=== PATIENT | male | born 1990 | race Caucasian/White ===

== ENCOUNTER 2016-12-09 08:19 | Emergency (ER) | payer SELFPAY ==
[~2016-12-09 08:19] MED LIST: CIPR500T2 PO; DICL50 PO
[2016-12-09 08:21] VITALS: BP 135/79; PULSE 54; RESP 20; TEMP 97.2; O2SAT 99
[2016-12-09] MEDS ORDERED: SODIUM CHLOR 0.9% 1000 ML INJ 1,000 ML IV ONE (09:15)
--- NOTE | 2016-12-09 09:20 | PD ---
HPI Chief Complaint: General Weakness Time Seen by Provider: 09:06 Travel History International Travel<30 days: No Contact w/Intl Traveler<30days: No Traveled to known affect area: No History of Present Illness HPI Patient is a 26-year-old male who comes in complaining of weakness, and feeling unwell. He says his blood over the past 3 days. He says he has some pains in his arms and his back as well as sometimes in his abdomen. He says he has not been eating much lately. He denies vomiting, but has had some nausea. He says he feels short of breath when he walks. He denies any chest pain. He says he has an occasional cough. He denies any drug use other than marijuana. He denies fever or chills. 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 [facility] Social History Alcohol Use: Yes Tobacco Use: Yes Substance Use: No Allergies-Medications (Allergen,Severity, Reaction): Coded Allergies: No Known Allergies (Unverified , 03/22/15) Reported Meds & Prescriptions Reported Meds & Active Scripts Active Ciprofloxacin Hcl 500 Mg Tab 500 Mg PO BID Voltaren (Diclofenac Sodium) 50 Mg Tabec 50 Mg PO TID Review of Systems Except as stated in HPI: all other systems reviewed are Neg General / Constitutional: Positive: Weight Loss, No: Fever, Chills Eyes: No: Blurred Vision HENT: No: Headaches, Lightheadedness Cardiovascular: No: Chest Pain or Discomfort Respiratory: Positive: Shortness of Breath Gastrointestinal: Positive: Nausea, Diarrhea, Abdominal Pain, No: Vomiting Musculoskeletal: Positive: Myalgias Skin: No Rash, No Change in Pigmentation Neurologic: Positive: Weakness, No: Dizziness Physical Exam Narrative GENERAL: Awake and alert, in no acute distress. SKIN: Focused skin assessment warm/dry. HEAD: Atraumatic. Normocephalic. EYES: Pupils equal and round. No scleral icterus. ENT: Mucous membranes pink and moist. NECK: Trachea midline. No JVD. CARDIOVASCULAR: Regular rate and rhythm. No murmur appreciated. RESPIRATORY: No accessory muscle use. Clear to auscultation. Breath sounds equal bilaterally. GASTROINTESTINAL: Abdomen soft, nondistended. Mild tenderness to right upper quadrant and suprapubic area. No rebound or guarding. MUSCULOSKELETAL: No obvious deformities. No clubbing. No cyanosis. No edema. NEUROLOGICAL: Awake and alert. No obvious cranial nerve deficits. Motor grossly within normal limits. Normal speech. PSYCHIATRIC: Appropriate mood and affect; insight and judgment normal. Data Data Last Documented VS Vital Signs Date Time Temp Pulse Resp B/P Pulse Ox O2 Delivery O2 Flow Rate FiO2 12/09/16 11:39 75 16 122/63 100 12/09/16 09:07 Room Air 12/09/16 08:21 97.2 Orders Complete Blood Count With Diff (12/09/16 08:29) Basic Metabolic Panel (Bmp) (12/09/16 08:29) Creatine Kinase (Cpk) (12/09/16 08:29) Urinalysis - C+S If Indicated (12/09/16 08:29) Electrocardiogram (12/09/16 ) Troponin I (12/09/16 09:13) Chest, Pa & Lat (12/09/16 ) Sodium Chlor 0.9% 1000 Ml Inj (Ns 1000 M (12/09/16 09:15) Ketorolac Inj (Toradol Inj) (12/09/16 11:00) Labs Laboratory Tests Test 12/09/16 12/09/16 08:45 10:10 Urine Color YELLOW Urine Turbidity CLEAR Urine pH 7.5 Urine Specific [place] 1.020 Urine Protein NEG mg/dL Urine Glucose (UA) NEG mg/dL Urine Ketones NEG mg/dL Urine Occult Blood NEG Urine Nitrite NEG Urine Bilirubin NEG Urine Urobilinogen LESS THAN 2.0 MG/DL Urine Leukocyte Esterase NEG Urine RBC LESS THAN 1 /hpf Microscopic Urinalysis Comment CULT NOT INDICATED White Blood Count 8.2 TH/MM3 Red Blood Count 5.18 MIL/MM3 Hemoglobin 12.3 GM/DL Hematocrit 38.8 % Mean Corpuscular Volume 74.9 FL Mean Corpuscular Hemoglobin 23.8 PG Mean Corpuscular Hemoglobin 31.8 % Concent Red Cell Distribution Width 16.6 % Platelet Count 211 TH/MM3 Mean Platelet Volume 8.6 FL Neutrophils (%) (Auto) 77.9 % Lymphocytes (%) (Auto) 14.3 % Monocytes (%) (Auto) 6.6 % Eosinophils (%) (Auto) 0.7 % Basophils (%) (Auto) 0.5 % Neutrophils # (Auto) 6.4 TH/MM3 Lymphocytes # (Auto) 1.2 TH/MM3 Monocytes # (Auto) 0.5 TH/MM3 Eosinophils # (Auto) 0.1 TH/MM3 Basophils # (Auto) 0.0 TH/MM3 CBC Comment DIFF FINAL Differential Comment Sodium Level 140 MEQ/L Potassium Level 4.0 MEQ/L Chloride Level 106 MEQ/L Carbon Dioxide Level 25.9 MEQ/L Anion Gap 8 MEQ/L Blood Urea Nitrogen 10 MG/DL Creatinine 0.95 MG/DL Estimat Glomerular Filtration 94 ML/MIN Rate Random Glucose 77 MG/DL Calcium Level 8.7 MG/DL Total Creatine Kinase 120 U/L Troponin I LESS THAN 0.02 NG/ML MDM Medical Decision Making Medical Screen Exam Complete: Yes Emergency Medical Condition: Yes Medical Record Reviewed: Yes Interpretation(s) ECG shows sinus bradycardia, no ST elevation or depression, normal intervals. Differential Diagnosis Viral syndrome versus dehydration versus pneumonia versus electrolyte abnormality Narrative Course Patient is a 26 year old male who comes in complaining of feeling unwell. Exam shows minimal abdominal pain, no rebound or guarding. IV established, labs sent. Labs show no acute abnormalities. Patient given IVF and Toradol. He is reassured by normal labs and CXR. Says he is ready to go home. He is advised to increase his fluid intake. Advised to follow up with a primary care doctor. Advised to return to the ED as needed for any worsening symptoms. Diagnosis Primary Impression: Generalized weakness Referrals: [facility] call for appointment Patient Instructions: General Instructions, Viral Syndrome (ED), Weakness (ED) Additional Instructions: Follow up with a primary care doctor. Increase your fluid intake. Return to the ED as needed for any worsening symptoms. Disposition: 01 DISCHARGE HOME Condition: Stable Keyonna Delatorre MD Dec 09, 2016 09:20
[2016-12-09 09:28] LABS: BLOOD, URINE NEG (NEG); COMMENT (UR) CULT NOT INDICATED; CULTURE IF INDICATED CULT NOT INDICATED; GLUCOSE,URINE NEG (NEG); KETONE, URINE NEG (NEG); NITRITE,URINE NEG (NEG); PH, URINE 7.5 (5.0-8.5); URINE COLOR YELLOW (YELLW/STRAW)
--- NOTE | 2016-12-09 10:24 | RADRPT ---
EXAM DATE/TIME: 12/09/2016 09:49 [facility] COMPARISON: No previous studies available for comparison. INDICATIONS : Short of breath, weakness. MEDICAL HISTORY : heart murmur SURGICAL HISTORY : None. ENCOUNTER: Initial ACUITY: 4 - 6 days PAIN SCORE: 4/10 LOCATION: Right chest upper FINDINGS: PA and lateral views of the chest demonstrate the lungs to be symmetrically aerated without evidence of mass, infiltrate or effusion. The cardiomediastinal contours are unremarkable. Osseous structure s are intact. CONCLUSION: 1. No acute cardiopulmonary findings. Andrea Ivory MD on December 09, 2016 at 10:14 Board Certified Radiologist. This report was verified electronically.
[2016-12-09 10:26] LABS: AUTOMATED NEUTROPHIL # 6.4 TH/MM3 (1.8-7.7); BASOPHIL % 0.5 % (0.0-2.0); EOSINOPHIL # 0.1 TH/MM3 (0-0.4); EOSINOPHIL % 0.7 % (0.0-4.0); HEMATOCRIT 38.8 % (39.0-51.0); HEMO FLAGS DIFF FINAL; LYMPH % 14.3 % (9.0-44.0); LYMPHOCYTE # 1.2 TH/MM3 (1.0-4.8); MEAN CELL VOLUME 74.9 FL (80.0-100.0); MEAN CORPUSCULAR HEMOGLOBIN 23.8 PG (27.0-34.0); MEAN CORPUSCULAR HGB CONC 31.8 % (32.0-36.0); MONO % 6.6 % (0.0-8.0); NEUT % 77.9 % (16.0-70.0); PLATELET COUNT 211 TH/MM3 (150-450); RED BLOOD COUNT 5.18 MIL/MM3 (4.50-5.90); RED CELL DISTRIBUTION WIDTH 16.6 % (11.6-17.2); WHITE BLOOD COUNT 8.2 TH/MM3 (4.0-11.0)
[2016-12-09 10:46] LABS: BICARBONATE 25.9 MEQ/L (21.0-32.0)
[2016-12-09] MEDS ORDERED: KETOROLAC TROMETHAMINE 30 MG/ML (IVP) VIAL IV PUSH ONE (11:00)
[2016-12-09 11:39] VITALS: BP 122/63
--- NOTE | 2016-12-09 16:47 | EKG ---
Date Performed: 12/09/2016 Time Performed: 09:22:24 PTAGE: 26 years EKG: SINUS BRADYCARDIA EARLY REPOLARIZATION BORDERLINE ECG NO PREVIOUS TRACING DOCTOR: Abe Seals Interpretating Date/Time 12/09/2016 16:45:38
== END 2016-12-09 11:41 | disposition home or self-care (01) ==
LOC: NEPD 08:19
DX: R53.1 Weakness (principal); R06.02 Shortness of breath; R05 Cough; R00.1 Bradycardia, unspecified; Z72.0 Tobacco use
CPT/HCPCS: 71020; 80048; 81001; 82550; 84484; 85025; 93005; 99285; J7030

== ENCOUNTER 2016-12-18 22:46 | Emergency (ER) | payer SELFPAY ==
[~2016-12-18] VITALS: Ht 172.7 cm; Wt 55.0 kg
[2016-12-18 22:48] VITALS: BP 116/59; PULSE 80; RESP 18; TEMP 98.8; O2SAT 100
--- NOTE | 2016-12-18 23:58 | PD ---
HPI Chief Complaint: Injury Time Seen by Provider: 23:45 Travel History International Travel<30 days: No Contact w/Intl Traveler<30days: No Traveled to known affect area: No History of Present Illness HPI Patient is a 26-year-old male who presents to emergency room complaints of right knee pain. Patient reports that he woke up 3 days ago and noticed increased redness and swelling to his right knee. Reports that there is a little white dot on his knee, he is unsure if he was bitten by a bug. Patient denies any fevers, reports chills. Patient's tetanus is up-to-date. Patient denies any trauma to his knee. No other complaints. PFSH Past Medical History Medical History: Denies Significant Hx Social History Alcohol Use: Yes (ONCE EVERY TWO WEEKS) Tobacco Use: Yes (1/2 PPD) Substance Use: Yes (MARIJUANA) Allergies-Medications (Allergen,Severity, Reaction): Coded Allergies: No Known Allergies (Unverified , 12/18/16) Reported Meds & Prescriptions Reported Meds & Active Scripts Active Ibuprofen 600 Mg Tab 600 Mg PO Q6H PRN Percocet (Oxycodone-Acetaminophen) 5-325 mg Tab 1 Tab PO Q6H PRN Bactrim DS (Sulfamethoxazole-Trimethoprim) 800-160 Mg Tab 1 Tab PO BID 10 Days Keflex (Cephalexin) 500 Mg Cap 500 Mg PO Q6H 10 Days Review of Systems General / Constitutional: No: Fever Eyes: No: Visual changes HENT: No: Headaches Cardiovascular: No: Chest Pain or Discomfort Respiratory: No: Shortness of Breath Gastrointestinal: No: Abdominal Pain Genitourinary: No: Dysuria Musculoskeletal: Positive: Pain (right knee pain) Skin: No Rash Neurologic: No: Weakness Psychiatric: No: Depression Endocrine: No: Polydipsia Hematologic/Lymphatic: No: Easy Bruising Physical Exam Narrative GENERAL:NAD, Nontoxic SKIN: Focused skin assessment warm/dry. HEAD: Atraumatic. Normocephalic. EYES: Pupils equal and round. No scleral icterus. No injection or drainage. ENT: No nasal bleeding or discharge. Mucous membranes pink and moist. NECK: Trachea midline. No JVD. CARDIOVASCULAR: Regular rate and rhythm. No murmur appreciated. RESPIRATORY: No accessory muscle use. Clear to auscultation. Breath sounds equal bilaterally. GASTROINTESTINAL: Abdomen soft, non-tender, nondistended. Hepatic and splenic margins not palpable. MUSCULOSKELETAL: No obvious deformities. No clubbing. No cyanosis. Swelling and erythema to knee NEUROLOGICAL: Awake and alert. No obvious cranial nerve deficits. Motor grossly within normal limits. Normal speech. PSYCHIATRIC: Appropriate mood and affect; insight and judgment normal. Data Data Last Documented VS Vital Signs Date Time Temp Pulse Resp B/P Pulse Ox O2 Delivery O2 Flow Rate FiO2 12/19/16 00:44 16 12/19/16 00:11 73 100 12/18/16 22:48 98.8 116/59 Orders Basic Metabolic Panel (Bmp) (12/18/16 23:48) Complete Blood Count With Diff (12/18/16 23:48) Iv Access Insert/Monitor (12/18/16 23:48) Ecg Monitoring (12/18/16 23:48) Morphine Inj (Morphine Inj) (12/19/16 00:00) Vancomycin Inj (Vancomycin Inj) (12/19/16 00:00) Knee, Complete (4vws) (12/18/16 ) Synovial Fluid Crystals (12/18/16 23:48) Synovial Fluid Glucose (12/18/16 23:48) Synovial Fluid Total Protein (12/18/16 23:48) Fluid Culture And Gram Stain (12/18/16 23:53) Lidocaine 1% Inj (Xylocaine 1% Inj) (12/19/16 00:00) Diphenhydramine Inj (Benadryl Inj) (12/19/16 01:00) Synovial Fl Cell Count + Diff (12/19/16 03:45) Synovial Fluid Total Protein (12/19/16 03:47) Labs Laboratory Tests Test 12/18/16 12/19/16 12/19/16 23:50 00:45 04:02 White Blood Count 14.6 TH/MM3 Red Blood Count 4.88 MIL/MM3 Hemoglobin 11.5 GM/DL Hematocrit 36.7 % Mean Corpuscular Volume 75.1 FL Mean Corpuscular Hemoglobin 23.6 PG Mean Corpuscular Hemoglobin 31.4 % Concent Red Cell Distribution Width 16.4 % Platelet Count 245 TH/MM3 Mean Platelet Volume 8.5 FL Neutrophils (%) (Auto) 82.6 % Lymphocytes (%) (Auto) 9.3 % Monocytes (%) (Auto) 6.8 % Eosinophils (%) (Auto) 0.9 % Basophils (%) (Auto) 0.4 % Neutrophils # (Auto) 12.0 TH/MM3 Lymphocytes # (Auto) 1.4 TH/MM3 Monocytes # (Auto) 1.0 TH/MM3 Eosinophils # (Auto) 0.1 TH/MM3 Basophils # (Auto) 0.1 TH/MM3 CBC Comment DIFF FINAL Differential Comment Sodium Level 138 MEQ/L Potassium Level 3.9 MEQ/L Chloride Level 100 MEQ/L Carbon Dioxide Level 27.3 MEQ/L Anion Gap 11 MEQ/L Blood Urea Nitrogen 16 MG/DL Creatinine 1.04 MG/DL Estimat Glomerular Filtration 85 ML/MIN Rate Random Glucose 81 MG/DL Calcium Level 8.9 MG/DL Synovial Fluid Crystals NONE Synovial Fluid Color STRAW Synovial Fluid Appearance CLEAR Synovial Fluid WBC 24 /MM3 Synovial Fluid RBC 9 /MM3 Synovial Fluid Neutrophils 97 % Synovial Fluid Lymphocytes 3 % MDM Medical Decision Making Medical Screen Exam Complete: Yes Emergency Medical Condition: Yes Interpretation(s) Vital Signs Date Time Temp Pulse Resp B/P Pulse Ox O2 Delivery O2 Flow Rate FiO2 12/18/16 22:48 98.8 80 18 116/59 100 Differential Diagnosis Differential includes septic joint, cellulitis, gout Narrative Course 26-year-old male who presents to emergency room with complaints of right knee swelling and pain for the past 3 days. Reports chills with his symptoms. There seems to be an area that may be an abscess vs bug bite. Plan to treat with vancomycin as there is redness to his right knee. Will obtain fluid aspirate and evaluate for septic joint Vital Signs Date Time Temp Pulse Resp B/P Pulse Ox O2 Delivery O2 Flow Rate FiO2 12/19/16 00:44 16 12/19/16 00:11 73 20 100 12/18/16 22:48 98.8 80 18 116/59 100 Laboratory Tests Test 12/18/16 12/19/16 12/19/16 23:50 00:45 04:02 White Blood Count 14.6 TH/MM3 (4.0-11.0) Red Blood Count 4.88 MIL/MM3 (4.50-5.90) Hemoglobin 11.5 GM/DL (13.0-17.0) Hematocrit 36.7 % (39.0-51.0) Mean Corpuscular Volume 75.1 FL (80.0-100.0) Mean Corpuscular Hemoglobin 23.6 PG (27.0-34.0) Mean Corpuscular Hemoglobin 31.4 % Concent (32.0-36.0) Red Cell Distribution Width 16.4 % (11.6-17.2) Platelet Count 245 TH/MM3 (150-450) Mean Platelet Volume 8.5 FL (7.0-11.0) Neutrophils (%) (Auto) 82.6 % (16.0-70.0) Lymphocytes (%) (Auto) 9.3 % (9.0-44.0) Monocytes (%) (Auto) 6.8 % (0.0-8.0) Eosinophils (%) (Auto) 0.9 % (0.0-4.0) Basophils (%) (Auto) 0.4 % (0.0-2.0) Neutrophils # (Auto) 12.0 TH/MM3 (1.8-7.7) Lymphocytes # (Auto) 1.4 TH/MM3 (1.0-4.8) Monocytes # (Auto) 1.0 TH/MM3 (0-0.9) Eosinophils # (Auto) 0.1 TH/MM3 (0-0.4) Basophils # (Auto) 0.1 TH/MM3 (0-0.2) CBC Comment DIFF FINAL Differential Comment Sodium Level 138 MEQ/L (136-145) Potassium Level 3.9 MEQ/L (3.5-5.1) Chloride Level 100 MEQ/L (98-107) Carbon Dioxide Level 27.3 MEQ/L (21.0-32.0) Anion Gap 11 MEQ/L (5-15) Blood Urea Nitrogen 16 MG/DL (7-18) Creatinine 1.04 MG/DL (0.60-1.30) Estimat Glomerular Filtration 85 ML/MIN (>89) Rate Random Glucose 81 MG/DL (74-106) Calcium Level 8.9 MG/DL (8.5-10.1) Synovial Fluid Crystals NONE (NONE) Synovial Fluid Color STRAW (STRAW) Synovial Fluid Appearance CLEAR (CLEAR) Synovial Fluid WBC 24 /MM3 (0-200) Synovial Fluid RBC 9 /MM3 (0-0) Synovial Fluid Neutrophils 97 % (0-25) Synovial Fluid Lymphocytes 3 % Patient re-evaluated. Patient feeling much better.. Patient will follow up with all cultures from today.. He will return to ER if symptoms worsen or persist Synovial fluid with 24 white blood cells, 97% neutrophils, 3% monocytes, 9 red blood cells, patient did not have a septic joint. Patient with most likely cellulitis. Plan to treat with antibiotics. Patient will return to emergency within 48 hours for reevaluation. He will return to ER earlier if he develops any fever/chills or progressing/worsening symptoms Procedures Procedure Narrative Right knee effusion, aspirate aspiration knee was cleaned and prepped with betadine, 5ml of 1% lidocaine injected to right knee at 3oclock position, 6ml of clear knee synovial fluid aspirate obtained. area was dressed with dressing after procedure, patient tolerated procedure well. Diagnosis Primary Impression: Cellulitis of knee, right Patient Instructions: General Instructions Additional Instructions: Please take all antibiotics as prescribed Return to ER in 48 hours for re-evaluation Return to ER if you develop fever/chills or if symptoms worsen or progress Please follow up with all cultures from today Please follow up with your primary care doctor Med/Other Pt SpecificInfo: Prescription(s) given Scripts Ibuprofen 600 Mg [id number] Mg PO Q6H PRN (Pain/Inflammation) #40 TAB Ref 0 Prov:Miriam Barksdale DO 12/19/16 Oxycodone-Acetaminophen (Percocet)5-325 mg Tab1 Tab PO Q6H PRN (PAIN) #10 TAB Ref 0 Prov:Miriam Barksdale DO 12/19/16 Sulfamethoxazole-Trimethoprim (Bactrim DS)800-160 Mg Tab1 Tab PO BID 10 Days Ref 0 Prov:Miriam Barksdale DO 12/19/16 Cephalexin (Keflex)500 Mg [id number] Mg PO Q6H 10 Days Ref 0 Prov:Miriam Barksdale DO 12/19/16 Disposition: 01 DISCHARGE HOME Condition: Stable Miriam Barksdale DO Dec 18, 2016 23:58
[2016-12-19] MEDS ORDERED: LIDOCAINE HCL 1% 30 ML VIAL INFIL ONE
[2016-12-19] MEDS ORDERED: VANCOMYCIN INJ 850 MG in SODIUM CHLOR 0.9% 250 ML INJ 250 ML IV ONE ×2
[2016-12-19] MEDS ORDERED: MORPHINE SULFATE 8 MG/ML INJ IV PUSH ONE
--- NOTE | 2016-12-19 00:33 | RADRPT ---
EXAM DATE/TIME: 12/19/2016 00:04 [facility] COMPARISON: No previous studies available for comparison. INDICATIONS : Inflammation MEDICAL HISTORY : SURGICAL HISTORY : ENCOUNTER: Initial ACUITY: 1 day PAIN SCORE: 9/10 LOCATION: Right Knee FINDINGS: Four view examination of the right knee demonstrates no evidence of fracture or dislocation. Bony mi neralization is normal. The articular surfaces are intact. The suprapatellar soft tissues have a no rmal configuration. CONCLUSION: No acute bony process Suman Meléndez MD on December 19, 2016 at 0:30 Board Certified Radiologist. This report was verified electronically.
[2016-12-19 00:35] LABS: BASOPHIL # 0.1 TH/MM3 (0-0.2); BASOPHIL % 0.4 % (0.0-2.0); EOSINOPHIL # 0.1 TH/MM3 (0-0.4); EOSINOPHIL % 0.9 % (0.0-4.0); HEMATOCRIT 36.7 % (39.0-51.0); HEMO FLAGS DIFF FINAL; LYMPH % 9.3 % (9.0-44.0); LYMPHOCYTE # 1.4 TH/MM3 (1.0-4.8); MEAN CELL VOLUME 75.1 FL (80.0-100.0); MEAN CORPUSCULAR HEMOGLOBIN 23.6 PG (27.0-34.0); MEAN CORPUSCULAR HGB CONC 31.4 % (32.0-36.0); MONO % 6.8 % (0.0-8.0); NEUT % 82.6 % (16.0-70.0); PLATELET COUNT 245 TH/MM3 (150-450); RED BLOOD COUNT 4.88 MIL/MM3 (4.50-5.90); RED CELL DISTRIBUTION WIDTH 16.4 % (11.6-17.2); WHITE BLOOD COUNT 14.6 TH/MM3 (4.0-11.0)
[2016-12-19] MEDS ORDERED: diphenhydrAMINE HCL 50 MG/ML VIAL IV PUSH ONE (01:00)
[2016-12-19 01:26] LABS: BICARBONATE 27.3 MEQ/L (21.0-32.0)
[2016-12-19 01:28] LABS: POTASSIUM 3.9 MEQ/L (3.5-5.1)
[2016-12-19 05:47] LABS: WBC, SYNOVIAL FLUID 24 /MM3 (0-200)
[2016-12-19] MEDS ORDERED: IBUP-232 PO (05:59)
[2016-12-19] MEDS ORDERED: PERC5TAB12 PO (05:59)
[2016-12-19] MEDS ORDERED: CEPH-460 PO (05:59)
[2016-12-19] MEDS ORDERED: BACT800T5 PO (05:59)
[2016-12-19 07:15] VITALS: BP 118/55; PULSE 81; RESP 18; O2SAT 98
[2016-12-19 07:43] VITALS: BP 118/55
[2016-12-22 23:53] LABS: TOTAL PROTEIN, SYNOVIAL FLUID 1.2 g/dL (1.0-3.0)
== END 2016-12-19 07:45 | disposition home or self-care (01) ==
LOC: NEPC 22:46
DX: L03.115 Cellulitis of right lower limb (principal)
CPT/HCPCS: 73564; 80048; 82945; 84157; 85025; 87070; 87205; 89051; 89060; 96365; 96366; 96375; 99284; J1200; J2270; J3370; J7050

== ENCOUNTER 2017-02-08 16:55 | Emergency (ER) | payer SELFPAY ==
[~2017-02-08] VITALS: Ht 172.7 cm; Wt 55.0 kg
[~2017-02-08 16:55] MED LIST changes: +BACT800T5 PO; +CEPH-460 PO; -CIPR500T2 PO; -DICL50 PO; +IBUP-232 PO; +PERC5TAB12 PO
[2017-02-08 16:58] VITALS: BP 124/70; PULSE 80; RESP 16; TEMP 98.2; O2SAT 98
--- NOTE | 2017-02-08 19:14 | PD ---
HPI Chief Complaint: Headache Time Seen by Provider: 18:57 Travel History International Travel<30 days: No Contact w/Intl Traveler<30days: No Traveled to known affect area: No History of Present Illness HPI This patient complains of headache. Duration one day. Severity was moderate at onset. He had a right sided frontal throbbing. He took 2 Tylenol and decided to come to the ER. However by the time I evaluate him he says he is significantly improved. No thunderclap onset or fever or head injury. Severity is now very mild. PFSH Past Medical History Tetanus Vaccination: < 5 Years Influenza Vaccination: No Social History Alcohol Use: Yes (ONCE EVERY TWO WEEKS) Tobacco Use: Yes (06/01 PPD) Substance Use: Yes (MARIJUANA) Allergies-Medications (Allergen,Severity, Reaction): Coded Allergies: No Known Allergies (Unverified , 12/18/16) Reported Meds & Prescriptions Reported Meds & Active Scripts Active Ibuprofen 600 Mg Tab 600 Mg PO Q6H PRN Percocet (Oxycodone-Acetaminophen) 5-325 mg Tab 1 Tab PO Q6H PRN Bactrim DS (Sulfamethoxazole-Trimethoprim) 800-160 Mg Tab 1 Tab PO BID 10 Days Keflex (Cephalexin) 500 Mg Cap 500 Mg PO Q6H 10 Days Review of Systems General / Constitutional: No: Fever Eyes: No: Visual changes HENT: Positive: Headaches Cardiovascular: No: Chest Pain or Discomfort Respiratory: No: Shortness of Breath Gastrointestinal: No: Abdominal Pain Genitourinary: No: Dysuria Musculoskeletal: No: Pain Skin: No Rash Neurologic: Positive: Headache, No: Weakness Psychiatric: No: Depression Endocrine: No: Polydipsia Hematologic/Lymphatic: No: Easy Bruising Physical Exam Narrative GENERAL: Well-nourished, well-developed patient in no apparent distress. SKIN: Focused skin assessment reveals no rash and nodules. Skin is Warm and dry. HEAD: Atraumatic. Normocephalic. EYES: Pupils equal and round. No scleral icterus. No injection or drainage. ENT: No nasal bleeding or discharge. Mucous membranes pink and moist. NECK: Trachea midline. No JVD. No meningeal signs CARDIOVASCULAR: Regular rate and rhythm. No murmur appreciated. RESPIRATORY: No accessory muscle use. Clear to auscultation. Breath sounds equal bilaterally. GASTROINTESTINAL: Abdomen soft, non-tender, nondistended. Hepatic and splenic margins not palpable. MUSCULOSKELETAL: No obvious deformities. No clubbing. No cyanosis. No edema. NEUROLOGICAL: Awake and alert. No obvious cranial nerve deficits. Motor grossly within normal limits. Normal speech. PSYCHIATRIC: Appropriate mood and affect; insight and judgment normal. Data Data Last Documented VS Vital Signs Date Time Temp Pulse Resp B/P (MAP) Pulse Ox O2 Delivery O2 Flow Rate FiO2 02/08/17 16:58 98.2 80 16 124/70 (88) 98 Orders Orders Ketorolac Inj (Toradol Inj) (02/08/17 19:15) [facility] Medical Decision Making Medical Screen Exam Complete: Yes Emergency Medical Condition: Yes Medical Record Reviewed: Yes Differential Diagnosis Differential diagnosis includes migraine, tension headache, cluster headache, meningitis. Narrative Course I have reviewed the patient's electronic medical record. Patient is neurologically intact. He looks clinically well with normal vital signs. His headache is significantly improved and at this point requires no emergent testing. I've given him Toradol injection. Stable for outpatient follow-up Diagnosis Primary Impression: Headache Qualified Codes: R51 - Headache Additional Instructions: The patient was advised to follow up with their physician and return if they worsen. Med/Other Pt SpecificInfo: Other Disposition: 01 DISCHARGE HOME Condition: Stable Trenton Rodriguez MD Feb 08, 2017 19:14
[2017-02-08] MEDS ORDERED: KETOROLAC TROMETHAMINE 60 MG/2 ML (IM) VIAL IM ONE (19:15)
== END 2017-02-08 20:39 | disposition home or self-care (01) ==
LOC: NEPD 16:55
DX: R51 Headache (principal); F17.200 Nicotine dependence, unspecified, uncomplicated
CPT/HCPCS: 96372; 99284; J1885

== ENCOUNTER 2017-06-03 19:27 | Emergency (ER) | payer SELFPAY ==
[~2017-06-03] VITALS: Ht 172.7 cm; Wt 60.0 kg
[2017-06-03 19:27] VITALS: BP 138/64; PULSE 81; RESP 16; TEMP 97.8; O2SAT 99
--- NOTE | 2017-06-03 21:21 | PD ---
HPI Chief Complaint: Bleeding Time Seen by Provider: 21:21 Travel History International Travel<30 days: No Contact w/Intl Traveler<30days: No Traveled to known affect area: No History of Present Illness HPI 26-year-old male patient presents emergency department for evaluation of 5 days of right upper quadrant abdominal pain. Patient states he has been vomiting bright red blood 2 times a day. Patient states he's been having one to 2 bowel movements daily he denies any diarrhea but states there is dark red blood in his stool. Patient states he went to an emergency department in [place] initially when the symptoms started however he felt the wait was too long and he left before he was seen. Patient denies any nausea at this time. He states are no relieving factors. Patient denies any daily alcohol use however states he had one beer the other day and exacerbated the pain in his stomach. Patient does smoke a pack a half cigarettes a day and he has done so since he was 10 years old. Patient denies any dysuria or hematuria but states his urine is darker than usual. Patient refuses to have a rectal exam with Hemoccult. Patient denies any major medical history outside of a heart murmur when he was a child. He does not take any daily medication. Patient denies any fevers, chills, malaise. Patient states he does get dyspneic with exertion. PFSH Past Medical History Cardiovascular Problems: Yes (murmur) Influenza Vaccination: No Social History Alcohol Use: Yes (ONCE EVERY TWO WEEKS) Tobacco Use: Yes (06/01 PPD) Substance Use: Yes (MARIJUANA) Allergies-Medications (Allergen,Severity, Reaction): Coded Allergies: No Known Allergies (Unverified Adverse Reaction, Unknown, 06/03/17) Reported Meds & Prescriptions Reported Meds & Active Scripts Active No Active Prescriptions or Reported Medications Review of Systems Except as stated in HPI: all other systems reviewed are Neg Physical Exam Narrative GENERAL: Pale, thin 26-year-old male patient in no acute distress. SKIN: Focused skin assessment warm/dry. HEAD: Normocephalic. Atraumatic. EYES: No scleral icterus. No injection or drainage. NECK: Supple, trachea midline. No JVD or lymphadenopathy. CARDIOVASCULAR: Regular rate and rhythm without murmurs, gallops, or rubs. RESPIRATORY: Breath sounds equal bilaterally. No accessory muscle use. GASTROINTESTINAL: Abdomen soft, diffuse tenderness with palpation, significant right upper quadrant tenderness, nondistended. Negative Pineda sign. No rebound tenderness. MUSCULOSKELETAL: No cyanosis, or edema. BACK: Nontender without obvious deformity. No CVA tenderness. Data Data Last Documented VS Vital Signs Date Time Temp Pulse Resp B/P (MAP) Pulse Ox O2 Delivery O2 Flow Rate FiO2 06/03/17 21:22 96 Room Air 06/03/17 19:27 97.8 81 16 Orders Orders Complete Blood Count With Diff (06/03/17 21:17) Comprehensive Metabolic Panel (06/03/17 21:17) Lipase (06/03/17 21:17) Prothrombin Time / Inr (Pt) (06/03/17 21:17) Act Partial Throm Time (Ptt) (06/03/17 21:17) Urinalysis - C+S If Indicated (06/03/17 21:17) Type And Screen (06/03/17 21:17) Ecg Monitoring (06/03/17 21:17) Iv Access Insert/Monitor (06/03/17 21:17) Oximetry (06/03/17 21:17) Sodium Chloride 0.9% Flush (Ns Flush) (06/03/17 21:30) Ct Abd/Pel W Iv Contrast(Rout) (06/03/17 21:17) Pantoprazole Inj (Protonix Inj) (06/03/17 21:30) Labs Laboratory Tests Test 06/03/17 21:24 White Blood Count 9.5 TH/MM3 Red Blood Count 5.26 MIL/MM3 Hemoglobin 11.3 GM/DL Hematocrit 36.0 % Mean Corpuscular Volume 68.4 FL Mean Corpuscular Hemoglobin 21.4 PG Mean Corpuscular Hemoglobin Concent 31.3 % Red Cell Distribution Width 21.4 % Platelet Count 273 TH/MM3 Mean Platelet Volume 8.7 FL Neutrophils (%) (Auto) 68.5 % Lymphocytes (%) (Auto) 21.9 % Monocytes (%) (Auto) 8.3 % Eosinophils (%) (Auto) 0.7 % Basophils (%) (Auto) 0.6 % Neutrophils # (Auto) 6.5 TH/MM3 Lymphocytes # (Auto) 2.1 TH/MM3 Monocytes # (Auto) 0.8 TH/MM3 Eosinophils # (Auto) 0.1 TH/MM3 Basophils # (Auto) 0.1 TH/MM3 CBC Comment DIFF FINAL Differential Comment Prothrombin Time 11.9 SEC Prothromb Time International Ratio 1.2 RATIO Activated Partial Thromboplast Time 26.5 SEC Blood Urea Nitrogen 13 MG/DL Creatinine 0.96 MG/DL Random Glucose 86 MG/DL Total Protein 8.4 GM/DL Albumin 4.6 GM/DL Calcium Level 9.4 MG/DL Alkaline Phosphatase 83 U/L Aspartate Amino Transf (AST/SGOT) 17 U/L Alanine Aminotransferase (ALT/SGPT) 20 U/L Total Bilirubin 0.5 MG/DL Sodium Level 139 MEQ/L Potassium Level 3.7 MEQ/L Chloride Level 103 MEQ/L Carbon Dioxide Level 27.8 MEQ/L Anion Gap 8 MEQ/L Estimat Glomerular Filtration Rate 93 ML/MIN Lipase 110 U/L MDM Medical Decision Making Medical Screen Exam Complete: Yes Emergency Medical Condition: Yes Differential Diagnosis Differential diagnoses include but not limited to gastritis, peptic ulcer disease, pancreatitis, cholecystitis, GI bleed, bleeding hemorrhoids, bleeding esophageal varices Narrative Course Patient placed on monitor and IV obtained. Blood work since the lab. CBC, CMP , lipase, PT-INR, UA, type and screen ordered and pending. Abdominal CT ordered and pending. 40 mg IV Protonix ordered. Patient is refusing rectal exam to provide Hemoccult stool sample. CBC results hemoglobin 11.3. Patient's past medical records reviewed and this is around his baseline hemoglobin. CMP results no acute abnormality. PT/INR shows PT 11.9 [address] acute abnormality[address] Dr Daniels assumes care for this patient. Please see his documentation for further details and disposition. Scripts No Active Prescriptions or Reported Meds Keyonna Thayer Jun 03, 2017 21:21
[2017-06-03 21:22] VITALS: O2SAT 96
[2017-06-03] MEDS ORDERED: PANTOPRAZOLE SODIUM 40 MG VIAL IV PUSH ONE (21:30)
[2017-06-03] MEDS ORDERED: SODIUM CHLORIDE 0.9% FLUSH 10 ML FLUSH IVF PRN (21:30)
[2017-06-03 22:10] LABS: AUTOMATED NEUTROPHIL # 6.5 TH/MM3 (1.8-7.7); BASOPHIL # 0.1 TH/MM3 (0-0.2); BASOPHIL % 0.6 % (0.0-2.0); EOSINOPHIL # 0.1 TH/MM3 (0-0.4); EOSINOPHIL % 0.7 % (0.0-4.0); HEMOGLOBIN 11.3 GM/DL (13.0-17.0); LYMPH % 21.9 % (9.0-44.0); LYMPHOCYTE # 2.1 TH/MM3 (1.0-4.8); MEAN CELL VOLUME 68.4 FL (80.0-100.0); MEAN CORPUSCULAR HEMOGLOBIN 21.4 PG (27.0-34.0); MEAN CORPUSCULAR HGB CONC 31.3 % (32.0-36.0); MEAN PLATELET VOLUME 8.7 FL (7.0-11.0); MONO % 8.3 % (0.0-8.0); MONOCYTE # 0.8 TH/MM3 (0-0.9); NEUT % 68.5 % (16.0-70.0); PLATELET COUNT 273 TH/MM3 (150-450); RED BLOOD COUNT 5.26 MIL/MM3 (4.50-5.90); RED CELL DISTRIBUTION WIDTH 21.4 % (11.6-17.2); WHITE BLOOD COUNT 9.5 TH/MM3 (4.0-11.0)
[2017-06-03 22:21] LABS: INTERNATIONAL NORMALIZED RATIO 1.2 RATIO; PROTHROMBIN TIME - PATIENT 11.9 SEC (9.8-11.6)
[2017-06-03 22:30] LABS: ALBUMIN 4.6 GM/DL (3.4-5.0); AST (GOT) 17 U/L (15-37); BICARBONATE 27.8 MEQ/L (21.0-32.0); BLOOD UREA NITROGEN 13 MG/DL (7-18); CALCIUM 9.4 MG/DL (8.5-10.1); CHLORIDE 103 MEQ/L (98-107); CREATININE 0.96 MG/DL (0.60-1.30); GLOMERULAR FILTRATION RATE 93 ML/MIN (>89); GLUCOSE,RANDOM 86 MG/DL (74-106); LIPASE 110 U/L (73-393); SODIUM (NA) 139 MEQ/L (136-145)
[2017-06-03 22:33] LABS: ALKALINE PHOSPHATASE 83 U/L (45-117); ALT (GPT) 20 U/L (12-78); TOTAL BILIRUBIN ADULT 0.5 MG/DL (0.2-1.0); TOTAL PROTEIN 8.4 GM/DL (6.4-8.2)
[2017-06-03] MEDS ORDERED: IOHEXOL 350 MG/ML 10 ML VIAL (for RAD DIAG) IVCONTRAST ONE (22:57)
--- NOTE | 2017-06-03 23:13 | RADRPT ---
EXAM DATE/TIME: 06/03/2017 22:50 [facility] COMPARISON: No previous studies available for comparison. INDICATIONS : Right upper quadrant pain with hemoptysis and blood in stool. IV CONTRAST: 100 cc Omnipaque 350 (iohexol) IV ORAL CONTRAST: No oral contrast ingested. RADIATION DOSE: 4.54 CTDIvol (mGy) MEDICAL HISTORY : None SURGICAL HISTORY : None. ENCOUNTER: Initial ACUITY: 4 - 6 days PAIN SCALE: 7/10 LOCATION: Right upper quadrant TECHNIQUE: Volumetric scanning of the abdomen and pelvis was performed. Using automated exposure control and ad justment of the mA and/or kV according to patient size, radiation dose was kept as low as reasonably achievable to obtain optimal diagnostic quality images. DICOM format image data is available electro nically for review and comparison. FINDINGS: LOWER LUNGS: The visualized lower lungs are clear. LIVER: Homogeneous density without lesion. There is no dilation of the biliary tree. No calcified gallston es. SPLEEN: Normal size without lesion. PANCREAS: Within normal limits. KIDNEYS: Normal in size and shape. There is no mass, stone or hydronephrosis. ADRENAL GLANDS: Within normal limits. VASCULAR: There is no aortic aneurysm. BOWEL/MESENTERY: The stomach, small bowel, and colon demonstrate no acute abnormality. There is no free intraperitone al air or fluid. ABDOMINAL WALL: Within normal limits. RETROPERITONEUM: There is no lymphadenopathy. BLADDER: No wall thickening or mass. REPRODUCTIVE: Prostate calcifications noted. INGUINAL: There is no lymphadenopathy or hernia. MUSCULOSKELETAL: Within normal limits for patient age. CONCLUSION: No acute findings in the abdomen and pelvis. Kalin Payan MD on June 03, 2017 at 23:02 Board Certified Radiologist. This report was verified electronically.
[2017-06-03] MEDS ORDERED: PROT40TA PO (23:31)
--- NOTE | 2017-06-03 23:31 | PD ---
Data Data Last Documented VS Vital Signs Date Time Temp Pulse Resp B/P (MAP) Pulse Ox O2 Delivery O2 Flow Rate FiO2 06/03/17 21:22 96 Room Air 06/03/17 19:27 97.8 81 16 Orders Orders Complete Blood Count With Diff (06/03/17 21:17) Comprehensive Metabolic Panel (06/03/17 21:17) Lipase (06/03/17 21:17) Prothrombin Time / Inr (Pt) (06/03/17 21:17) Act Partial Throm Time (Ptt) (06/03/17 21:17) Urinalysis - C+S If Indicated (06/03/17 21:17) Type And Screen (06/03/17 21:17) Ecg Monitoring (06/03/17 21:17) Iv Access Insert/Monitor (06/03/17 21:17) Oximetry (06/03/17 21:17) Sodium Chloride 0.9% Flush (Ns Flush) (06/03/17 21:30) Ct Abd/Pel W Iv Contrast(Rout) (06/03/17 21:17) Pantoprazole Inj (Protonix Inj) (06/03/17 21:30) Iohexol 350 Inj (Omnipaque 350 Inj) (06/03/17 22:57) Labs Laboratory Tests Test 06/03/17 21:24 White Blood Count 9.5 TH/MM3 Red Blood Count 5.26 MIL/MM3 Hemoglobin 11.3 GM/DL Hematocrit 36.0 % Mean Corpuscular Volume 68.4 FL Mean Corpuscular Hemoglobin 21.4 PG Mean Corpuscular Hemoglobin Concent 31.3 % Red Cell Distribution Width 21.4 % Platelet Count 273 TH/MM3 Mean Platelet Volume 8.7 FL Neutrophils (%) (Auto) 68.5 % Lymphocytes (%) (Auto) 21.9 % Monocytes (%) (Auto) 8.3 % Eosinophils (%) (Auto) 0.7 % Basophils (%) (Auto) 0.6 % Neutrophils # (Auto) 6.5 TH/MM3 Lymphocytes # (Auto) 2.1 TH/MM3 Monocytes # (Auto) 0.8 TH/MM3 Eosinophils # (Auto) 0.1 TH/MM3 Basophils # (Auto) 0.1 TH/MM3 CBC Comment DIFF FINAL Differential Comment Prothrombin Time 11.9 SEC Prothromb Time International Ratio 1.2 RATIO Activated Partial Thromboplast Time 26.5 SEC Blood Urea Nitrogen 13 MG/DL Creatinine 0.96 MG/DL Random Glucose 86 MG/DL Total Protein 8.4 GM/DL Albumin 4.6 GM/DL Calcium Level 9.4 MG/DL Alkaline Phosphatase 83 U/L Aspartate Amino Transf (AST/SGOT) 17 U/L Alanine Aminotransferase (ALT/SGPT) 20 U/L Total Bilirubin 0.5 MG/DL Sodium Level 139 MEQ/L Potassium Level 3.7 MEQ/L Chloride Level 103 MEQ/L Carbon Dioxide Level 27.8 MEQ/L Anion Gap 8 MEQ/L Estimat Glomerular Filtration Rate 93 ML/MIN Lipase 110 U/L MDM Supervised Visit with SUELLEN: Yes Narrative Course I, Dr. Daniels, have reviewed the advance practice practitioner's documentation and am in agreement, met with the patient face to face, made the diagnosis, and the medical decision making was done by me. See her note for further details. Briefly this is a 26-year-old male who complains of bright red blood per rectum and vomiting blood for the last 5 days. Abdominal exam is benign. Rectal exam shows no masses, no fissures, no hemorrhoids, heme-negative brown stool. Hemoglobin is 11.3 and is around his baseline. CT abdomen pelvis shows no acute disease. His vital signs are within normal limits. He was made aware of all findings and is stable for discharge home with outpatient follow-up with a glass designer this week. He was also advised follow-up with a primary care physician this week. He was informed on when to return to the emergency department. He verbalizes understanding and agreement with plan. Diagnosis Primary Impression: Bright red blood per rectum Referrals: Marci Brandt MD 3 days [place] Supervisor Primary Care Physician Additional Instruction: Follow-up with a primary care physician this week. Follow-up with glass designer Dr. Brandt or a glass designer of your choice this week. Return to the emergency department for worsening symptoms or any other concerns. Scripts Pantoprazole (Protonix) 40 Mg Tab 40 MG PO DAILY for Reflux, #30 TAB 0 Refills Prov: Quentin Daniels MD 06/03/17 Disposition: 01 DISCHARGE HOME Condition: Stable Quentin Daniels MD Jun 03, 2017 23:31
== END 2017-06-04 00:48 | disposition home or self-care (01) ==
LOC: NEPC 19:27
DX: K92.1 Melena (principal); F17.210 Nicotine dependence, cigarettes, uncomplicated
CPT/HCPCS: 74177; 80053; 83690; 85025; 85610; 85730; 86850; 86900; 86901; 96374; 99285; C9113; Q9967